=== PATIENT | female | born 1940 | race Caucasian/White ===

== ENCOUNTER → 2017-04-05 | Outpatient (CLI) | payer OTHER ==
[~2017-04-05] MED LIST: ASA81BEC PO; BENAZEPRIL HCL20 MG PO; CALCIUM 500 +1 EAC5 PO; FISH OIL 1,001000 M2 PO; HYDROCODONE-APA1 TA1 PO; LIPITOR 20 MG T20 M1 PO; NORVASC10 MG PO; VITAMIN C500 M1 PO; VITAMIN D1000 UNI1 PO
== END ==
LOC: RAD 10:34
DX: Z12.31 Encounter for screening mammogram for malignant neoplasm of breast (principal)